=== PATIENT | female | born 1990 | race Caucasian/White ===

== ENCOUNTER 2020-04-24 21:10 | Emergency (ER) | payer BC, OTHER ==
[2020-04-24] MEDS ORDERED: predniSONE 20 MG Tab PO STA (21:38)
--- NOTE | 2020-04-24 21:42 | EDM.PDOC ---
ED HPI GENERAL MEDICAL PROBLEM - General Time Seen by Provider: 04/24/20 21:15 Source of Information: Reports: Patient History Limitations: Reports: No Limitations - History of Present Illness INITIAL COMMENTS - FREE TEXT/NARRATIVE: Patient comes emergency department today with complaints of continued throat pain discomfort and increased salivation. This patient was seen about a week ago and was told that she had tonsillitis. She did not have a strep screen. She was placed on a Z-Eze. She discontinued the Z-Eze couple of days ago. She continues to have quite a bit of sinus congestion and drainage not only from her nares but also in the back of her throat. She has a globus sensation in her throat. Feels like she is salivating all the time. She has no difficulty swallowing or breathing. No stridor. No change in her voice. No fever no chills. No chest pain no shortness of breath or difficulty breathing. She does kind of struggle with some chronic sinus congestion she has not tried anything for this. She is here because she would like some steroids as her primary care doctor thought that this was best for her. Throat Pain Pain Score (Numeric/FACES): 2 - Related Data Allergies Allergy/AdvReac Type Severity Reaction Status Date / Time Penicillins Allergy Rash Verified 04/25/20 01:18 Home Meds: Home Meds predniSONE 40 mg PO DAILY 4 Days #8 tab 04/24/20 [Rx] Past Medical History - Past Health History Medical/Surgical History: Denies Medical/Surgical History ED ROS ENT - Review of Systems Review Of Systems: Comprehensive ROS is negative, except as noted in HPI. ED EXAM, ENT - Physical Exam Exam: See Below Exam Limited By: No Limitations General Appearance: Alert, WD/WN, No Apparent Distress Eye Exam: Bilateral Eye: EOMI, PERRL Ears: Normal External Exam, Normal Canal, Normal TMs Nose: Nasal Discharge (Rhinorrhea), Nasal Tenderness (Maxillary sinus tenderness.). No: Injected Turbinates (Her turbinates are quite pale boggy swollen and very large. There is a large amount of clear rhinorrhea.) Mouth/Throat: Normal Lips, Normal Teeth. No: Normal Oropharynx (On the posterior wall of the pharynx there is quite a bit of cobblestoning and pink salmon-colored vesicles consistent with postnasal drip. There is no erythema injection induration or swelling.), Drooling, Hoarse Voice, Lip Swelling, Lip Ulcers, Muffled Voice, Peritonsillar Mass, Pharyngeal Erythema, Throat Swelling, Tongue Swelling, Tonsillar Erythema, Tonsillar Exudates, Tonsillar Swelling, Trismus, Uvular Deviation, Uvular Edema Head: Atraumatic, Normocephalic Neck: Normal Inspection Respiratory/Chest: No Respiratory Distress, Lungs Clear, Normal Breath Sounds, No Accessory Muscle Use, Chest Non-Tender Cardiovascular: Normal Peripheral Pulses, Regular Rate, Rhythm GI/Abdominal: Normal Bowel Sounds, Soft, Non-Tender (Female) Exam: Deferred Rectal (Female) Exam: Deferred Back: Normal Inspection, Full Range of Motion Extremities: Normal Inspection, Normal Range of Motion Neurological: Alert, Oriented Psychiatric: Normal Affect, Normal Mood Skin: Warm, Dry, Intact, Normal Color, No Rash Course - Vital Signs Last Recorded V/S: Last Vital Signs Temp 98.9 F 04/24/20 21:15 Pulse 93 04/24/20 21:15 Resp 14 04/24/20 21:15 BP 147/97 H 04/24/20 21:15 Pulse Ox 97 04/24/20 21:15 - Orders/Labs/Meds Meds: Medications Discontinued Medications Generic Name Dose Route Start Last Admin Trade Name Freq PRN Reason Stop Dose Admin Prednisone 40 mg 04/24/20 21:38 04/24/20 21:44 Prednisone PO 04/24/20 21:39 40 mg NOW STA Administration - Re-Assessments/Exams Free Text/Narrative Re-Assessment/Exam: 04/25/20 17:28 Explained to the patient that there is no sign of acute infection in the throat and Zithromax is good coverage for strep throat. I really think that this is more related to her new situs and postnasal drip. There is no evidence of active drooling or other airway concerns. We will treat her with nasal saline rinse fluticasone and steroids. She is comfortable with this plan and her questions are answered. Departure - Departure Time of Disposition: 21:37 Disposition: Home, Self-Care 01 Clinical Impression: Post-nasal drip Sinusitis Qualifiers: Sinusitis location: unspecified location Chronicity: acute Recurrence: not sp ecified as recurrent Qualified Code(s): J01.90 - Acute sinusitis, unspecified - Discharge Information Prescriptions: predniSONE 40 mg PO DAILY 4 Days #8 tab Instructions: Sinusitis, Adult, [id number], How to Perform a Sinus Rinse, [id number] Referrals: Lexie Sauer IT TECHNICAL ARCHITECT [Primary Care Provider] - Forms: ED Department Discharge Additional Instructions: Prednisone 40mg a day for the next 5 days. First dose given in the ED. Rx sent to [facility]. Saline Nasal rinse like a NettiPot twice daily. 10 minutes later. Flonase 1 spray each nostril twice daily for a week then 1 spray each nostril once a day. OTC Zyrtec Ju or Xyzal for sneezing and other allergies as well. Return to the ED if new or worsening symptoms. Follow up with PCP in a week if any problems or concerns. - Assessment/Plan Plan: Prednisone 40mg a day for the next 5 days. First dose given in the ED. Rx sent to [facility]. Saline Nasal rinse like a NettiPot twice daily. 10 minutes later. Flonase 1 spray each nostril twice daily for a week then 1 spray each nostril once a day. OTC Zyrtec Ju or Xyzal for sneezing and other allergies as well. Return to the ED if new or worsening symptoms. Follow up with PCP in a week if any problems or concerns.
[2020-04-25 01:24] VITALS: BP 147/97; PULSE 93
== END 2020-04-24 21:55 | disposition home or self-care (01) ==
LOC: VM.ED 21:10
DX: J01.90 Acute sinusitis, unspecified (principal); Z88.0 Allergy status to penicillin
CPT/HCPCS: 99282; J7512